=== PATIENT | male | born 1990 | race African-American/Black ===

== ENCOUNTER 2018-09-18 15:10 | Emergency (ER) | payer SELFPAY ==
[~2018-09-18] VITALS: Ht 175.3 cm; Wt 90.7 kg
[2018-09-18 15:20] VITALS: BP 124/70
[2018-09-18] MEDS ORDERED: ALBUTEROL SULF8.5 GM INH (15:45)
[2018-09-18] MEDS ORDERED: PROMETHAZINE-C118 M1 ORAL (15:45)
[2018-09-18 15:51] VITALS: BP 133/75
--- NOTE | 2018-09-18 15:51 | NUR ---
ER DISCHARGE NOTE: Pt was seen due to dry cough and headache. Patient is cleared to be discharged per ERMD, pt is aox4, on room air, with stable vital signs. pt was given dc and prescription instructions, pt was able to verbalize understanding, pt id band removed without complications. pt is able to ambulate with steady gait. pt took all belongings.
--- NOTE | 2018-09-18 16:15 | Emergency Room Report ---
History of Present Illness General Chief Complaint: Upper Respiratory Illness Source: Patient Present Illness HPI 28-year-old male presents ED for evaluation. Complaining of cough for the last 4 days. Cough is worse at night. Unable to sleep. Cough is dry. Denies fevers or chills. States his grandmother was recently diagnosed with bronchitis. States he has been taking [id number] medications without relief. States he recently traveled from [place]. Denies smoking. No other aggravating relieving factors. Denies any other associated symptoms Allergies: Coded Allergies: GUAIFENESIN (Verified Allergy, Unknown, hives, 09/18/18) Patient History Past Medical History: none Past Surgical History: none Pertinent Family History: none Social History: Denies: smoking, alcohol use, drug use Immunizations: UTD Reviewed Nursing Documentation: PMH: Agreed; PSxH: Agreed Nursing Documentation-PMH Past Medical History: No Stated History Review of Systems All Other Systems: negative except mentioned in HPI Physical Exam Vital Signs Date Time Temp Pulse Resp B/P (MAP) Pulse Ox O2 Delivery O2 Flow Rate FiO2 09/18/18 15:14 98.2 83 18 116/74 (88) 95 Room Air Sp02 EP Interpretation: reviewed, normal General Appearance: no apparent distress, alert, GCS 15, non-toxic Head: normocephalic, atraumatic Eyes: bilateral eye normal inspection, bilateral eye PERRL ENT: hearing grossly normal, normal pharynx, no angioedema, normal voice Neck: full range of motion, supple/symm/no masses Respiratory: chest non-tender, lungs clear, normal breath sounds, speaking full sentences Cardiovascular #1: regular rate, rhythm, no edema Cardiovascular #2: 2+ carotid (R), 2+ carotid (L), 2+ radial (R), 2+ radial (L) , 2+ dorsalis pedis (R), 2+ dorsalis pedis (L) Gastrointestinal: normal bowel sounds, non tender, soft, non-distended, no guarding, no rebound Rectal: deferred Genitourinary: normal inspection, no CVA tenderness Musculoskeletal: back normal, gait/station normal, normal range of motion, non- tender Neurologic: alert, oriented x3, responsive, motor strength/tone normal, sensory intact, speech normal Psychiatric: judgement/insight normal, memory normal, mood/affect normal, no suicidal/homicidal ideation Reflexes: 3+ bicep (R), 3+ bicep (L), 3+ tricep (R), 3+ tricep (L), 3+ knee (R) , 3+ knee (L) Lymphatic: no adenopathy Medical Decision Making Diagnostic Impression: Primary Impression: Bronchitis ER Course Hospital Course 28-year-old male presents to ED complaining of cough x 4 days Differential diagnoses include: URI, pharyngitis, otitis media, asthma Clinical course Patient placed on stretcher. After initial history, physical exam reveals a young male in no acute distress. Bilateral TM unremarkable. No pharyngeal erythema. No tonsillar exudates. No lymphadenopathy. lungs clear. abdomen soft. Clinical findings consistent with bronchitis. course is viral and self- limited. over the counter medications not working. Will prescribe promethazine with codeine along with inhaler. Will provide referrals Diagnosis - bronchitis Stable and discharged home with Rx albuterol, promethazine/codeine. Instructed to followup with PMD. Return to ED if symptoms recur or worsen Last Vital Signs Date Time Temp Pulse Resp B/P (MAP) Pulse Ox O2 Delivery O2 Flow Rate FiO2 09/18/18 15:51 97.9 79 18 133/75 99 Room Air Status: improved Disposition: HOME, SELF-CARE Condition: Stable Scripts Codeine/Promethazine Hcl* (PROMETHAZINE-CODEINE SYRUP*) 118 Ml Syrup 5 ML ORAL Q6H PRN for For Cough for 5 Days, ML 0 Refills Prov: Akil Thomas MD 09/18/18 Albuterol Sulfate* (ALBUTEROL SULFATE MDI*) 8.5 Gm Hfa.aer.ad 2 PUFF INH Q6H, #1 EA 0 Refills Prov: Akil Thomas MD 09/18/18 Referrals: [facility] Patient Instructions: Acute Bronchitis, Uokr-nh-Phol Akil Thomas MD Sep 18, 2018 16:15
== END 2018-09-18 15:51 | disposition home or self-care (01) ==
LOC: EMR 15:43
DX: J20.9 Acute bronchitis, unspecified (principal); Z88.8 Allergy status to other drugs, medicaments and biological substances
CPT/HCPCS: 99282